=== PATIENT | male | born 1980 | race Hispanic/Latino ===

== ENCOUNTER → 2025-01-03 10:41 | Outpatient (REF) | payer OTHER, SELFPAY | LOC: RCS 10:41 | PROVIDERS: ATTENDING PHYSICIAN Internal Medicine Cardiovascular Disease; FAMILY PHYSICIAN Internal Medicine | DX: R07.89 Other chest pain (principal); R00.2 Palpitations; R06.09 Other forms of dyspnea | CPT/HCPCS: 93017 ==

== ENCOUNTER → 2025-01-07 11:39 | Outpatient (REF) | payer OTHER, SELFPAY | LOC: RCS 11:39 | PROVIDERS: ATTENDING PHYSICIAN Internal Medicine Cardiovascular Disease | DX: R07.89 Other chest pain (principal); R00.2 Palpitations; R06.09 Other forms of dyspnea | CPT/HCPCS: 93306; Q9950 ==